=== PATIENT | female | born 1935 | race Native Hawaiian/Other Pacific Islander ===

== ENCOUNTER 2018-01-05 11:07 | Emergency (ER) | payer OTHER ==
--- NOTE | 2018-01-05 11:44 | C.PDOC ---
History Of Present Illness 82 year old female presents to the ER with a complaint of abdominal pain and nausea for the past 10 days, associated with one episode of vomiting. Denies fever, chills, or diarrhea. Time Seen by Provider: 01/05/18 11:31 Chief Complaint (Nursing): Abdominal Pain History Per: Patient History/Exam Limitations: no limitations Onset/Duration Of Symptoms: Days Current Symptoms Are (Timing): Still Present Location Of Pain/Discomfort: RUQ, LUQ Radiation Of Pain To:: None Quality Of Discomfort: Unable To Describe Associated Symptoms: Nausea, Vomiting (x1). denies: Fever, Diarrhea Exacerbating Factors: None Alleviating Factors: None Recent travel outside of the [place]: No Abnormal Vaginal Bleeding: No Past Medical History Reviewed: Historical Data, Nursing Documentation, Vital Signs Vital Signs: Last Vital Signs Temp 97.5 F L 01/05/18 16:54 Pulse 91 H 01/05/18 16:54 Resp 16 01/05/18 16:54 BP 121/81 01/05/18 16:54 Pulse Ox 99 01/05/18 18:38 - Medical History PMH: Arthritis, HTN, Hypercholesterolemia, Hyperlipidemia, Hypothyroidism Denies: Chronic Kidney Disease Surgical History: CABG Family History: States: Unknown Family Hx - Social History Hx Alcohol Use: No Hx Substance Use: No - Immunization History Hx Tetanus Toxoid Vaccination: No Hx Influenza Vaccination: No Hx Pneumococcal Vaccination: No Review Of Systems Constitutional: Negative for: Fever, Chills Cardiovascular: Negative for: Chest Pain, Palpitations Respiratory: Negative for: Cough, Shortness of Breath Gastrointestinal: Positive for: Nausea, Vomiting (x1), Abdominal Pain. Negative for: Diarrhea Genitourinary: Negative for: Dysuria, Hematuria Skin: Negative for: Rash Neurological: Negative for: Weakness, Numbness Physical Exam - Physical Exam Appears: Non-toxic Skin: Normal Color, Warm, Dry Head: Atraumatic, Normacephalic Eye(s): bilateral: Normal Inspection Oral Mucosa: Moist Neck: Normal, Supple Chest: Symmetrical, No Tenderness Cardiovascular: Rhythm Regular Respiratory: Normal Breath Sounds, No Rales, No Rhonchi, No Wheezing Gastrointestinal/Abdominal: Soft, Tenderness (Bilateral upper quadrants), No Guarding, No Rebound Back: No CVA Tenderness Neurological/Psych: Oriented x3, Normal Speech ED Course And Treatment - Laboratory Results Result Diagrams: 01/05/18 12:31 01/05/18 12:31 ECG: Interpreted By Me ECG Rhythm: Sinus Rhythm ECG Interpretation: Normal Rate From EC O2 Sat by Pulse Oximetry: 99 (Room air) Pulse Ox Interpretation: Normal - Radiology CXR: Viewed By Me, Read By Radiologist CXR Interpretation: Yes: Other (Limited study. Cardiomegaly. Mild pulmonary venous congestion.) - CT Scan/US CT abd/pel Other Rad Studies (CT/US): Read By Radiologist, Radiology Report Reviewed CT/US Interpretation: PROCEDURE: CT Abdomen and Pelvis with oral and IV contrast. HISTORY: abd pain. COMPARISON: None available. TECHNIQUE: Contiguous axial images of the abdomen and pelvis. Oral and IV contrast was administered. Coronal and Sagittal reformats generated and reviewed. Contrast dose: 100 cc Visipaque 320. Radiation dose: Total exam DLP = 192.88 mGy-cm. This CT exam was performed using one or more of the following dose reduction techniques: Automated exposure control, adjustment of the mA and/or kV according to patient size, and/or use of iterative reconstruction technique. FINDINGS: Streak artifact from external devices obscure evaluation of the lung bases. Limited study. LOWER THORAX: Moderate pleural effusions. Bibasilar atelectasis. No definite pneumothorax. Median sternotomy wires. Cardiomegaly. LIVER: Unremarkable unenhanced appearance. GALLBLADDER AND BILE DUCTS: Unremarkable unenhanced appearance. PANCREAS: Unremarkable unenhanced appearance. SPLEEN: Unremarkable unenhanced appearance. ADRENALS: Left adrenal gland hypertrophy. The right adrenal gland appears grossly unremarkable. KIDNEYS AND URETERS: The kidneys enhance symmetrically. No hydronephrosis or obstructing renal calculus. BLADDER: Urinary bladder wall thickening. REPRODUCTIVE: The uterus is not identified; correlate clinically for hysterectomy. APPENDIX: The appendix appears within normal limits of caliber. No secondary signs of acute appendicitis. BOWEL: The stomach is nondistended. The bowel loops appear within normal limits of caliber without evidence of intestinal obstruction. PERITONEUM: No significant free fluid. No definite free air. LYMPH NODES: No bulky lymphadenopathy identified. VASCULATURE: No aortic aneurysm. BONES: Degenerative changes. Osseous demineralization. OTHER FINDINGS: None. IMPRESSION: Limited study. Urinary bladder wall thickening; correlate clinically including urinalysis. Left adrenal gland hypertrophy. Colonic wall thickening of the transverse and left colon may be exaggerated by under distension ; correlate clinically to exclude colitis (i.e. Infectious, inflammatory, ischemic.). Moderate pleural effusions. Bibasilar atelectasis. Cardiomegaly. Additional findings as above. Reevaluation Time: 16:36 Reassessment Condition: Improved (ABD SOFT NT ND NO R/G. CT REPORT REVIEWED. TX FOR UTI, DC) Medical Decision Making Medical Decision Making: Plan: * Blood work * CT abd/pel * EKG * CXR * Urinalysis * Aspirin * * Maalox * Pepcid * Protonix * Zofran Disposition Counseled Patient/Family Regarding: Studies Performed, Diagnosis, Need For Followup, Rx Given - Disposition Referrals: YOUR,PMD [Other] Disposition: HOME/ ROUTINE Disposition Time: 16:36 Condition: IMPROVED Prescriptions: Nitrofurantoin Macrocrystals [Macrobid] 1 cap PO BID #14 cap Instructions: Urinary Tract Infection, Adult (DC), Acute Abdomen (Belly Pain), Adult (DC) Forms: [employer] (Albanian) - Clinical Impression Clinical Impression: Abdominal pain, UTI (urinary tract infection) - Scribe Statement The provider has reviewed the documentation as recorded by the Scribe Randall Duarte All medical record entries made by the Scribe were at my direction and personally dictated by me. I have reviewed the chart and agree that the record accurately reflects my personal performance of the history, physical exam, medical decision making, and the department course for this patient. I have also personally directed, reviewed, and agree with the discharge instructions and disposition.
[2018-01-05] MEDS ORDERED: Iohexol 240 (50 ml) PO STA (12:13)
[2018-01-05] MEDS ORDERED: Belladonna-Phenobarbital PO STA (12:13)
[2018-01-05] MEDS ORDERED: Aluminum Hydroxide/Magnesium Hydroxide Susp (30 mL) PO STA (12:13)
[2018-01-05 12:37] LABS: BASO # 0.1 K/uL (0.0-0.2); BASO % 0.8 % (0.0-2.0); EOS # 0.1 K/uL (0.0-0.7); HEMOGLOBIN 12.5 g/dL (11.0-16.0); LYMPH # 0.9 K/uL (1.0-4.3); LYMPH % 13.8 % (20.0-40.0); MEAN CELL VOLUME 99.2 fL (81.0-99.0); MEAN CORPUSCULAR HEMOGLOBIN 33.2 pg (27.0-31.0); MEAN CORPUSCULAR HGB CONC 33.5 g/dL (33.0-37.0); MEAN PLATELET VOLUME 9.7 fL (7.2-11.7); MONO # 0.7 K/uL (0.0-0.8); MONO % 10.8 % (0.0-10.0); NEUT % 73.6 % (50.0-75.0); RBC 3.77 Mil/uL (3.80-5.20); WHITE BLOOD COUNT 6.8 K/uL (4.8-10.8)
[2018-01-05 12:53] LABS: SQUAMOUS EPITHIAL 10 /hpf (0-5); URINE BACTERIA RARE (<OCC); URINE BILIRUBIN NEGATIVE (NEGATIVE); URINE BLOOD NEGATIVE (NEGATIVE); URINE CLARITY Hazy (Clear); URINE COLOR Amber (YELLOW); URINE GLUCOSE (UA) NORMAL (Normal); URINE LEUKOCYTE ESTERASE 2+ Leu/uL (Negative); URINE PROTEIN 2+ mg/dL (NEGATIVE)
[2018-01-05] MEDS ORDERED: Iohexol 240 (50 ml) ONE (12:57)
[2018-01-05] MEDS ORDERED: Aluminum Hydroxide/Magnesium Hydroxide Susp (30 mL) ONE (12:57)
[2018-01-05] MEDS ORDERED: Belladonna-Phenobarbital ONE (12:57)
[2018-01-05 13:06] LABS: ALB/GLOB RATIO 1.4 (1.0-2.1); ALBUMIN 4.2 g/dL (3.5-5.0); ALT/SGPT 23 U/L (9-52); AST/SGOT 25 U/L (14-36); BLOOD UREA NITROGEN 15 mg/dL (7-17); GFR NON-AFRICAN AMERICAN > 60; LIPASE 146 U/L (23-300)
--- NOTE | 2018-01-05 13:35 | RAD ---
Date of service: 01/05/18 Portable chest one view Comparison: Chest x-ray performed 10/17/15 Findings: Numerous external wires, leads, and devices obscure evaluation of the underlying parenchyma. Cardiomegaly. Median sternotomy wires. Atherosclerotic calcifications of the aorta. Mild pulmonary venous congestion. No significant pleural effusion or definite pneumothorax. Osseous demineralization. Degenerative changes. Impression: Limited study. Cardiomegaly. Mild pulmonary venous congestion.
[2018-01-05] MEDS ORDERED: Iodixanol 320 MG/ML 100 ML BOTTLE IV ONE (15:19)
--- NOTE | 2018-01-05 16:25 | CT ---
PROCEDURE: CT Abdomen and Pelvis with oral and IV contrast. HISTORY: abd pain COMPARISON: None available TECHNIQUE: Contiguous axial images of the abdomen and pelvis. Oral and IV contrast was administered. Coronal and Sagittal reformats generated and reviewed. Contrast dose: 100 cc Visipaque 320 Radiation dose: Total exam DLP = 192.88 mGy-cm. This CT exam was performed using one or more of the following dose reduction techniques: Automated exposure control, adjustment of the mA and/or kV according to patient size, and/or use of iterative reconstruction technique. FINDINGS: Streak artifact from external devices obscure evaluation of the lung bases. Limited study. LOWER THORAX: Moderate pleural effusions. Bibasilar atelectasis. No definite pneumothorax. Median sternotomy wires. Cardiomegaly. LIVER: Unremarkable unenhanced appearance. GALLBLADDER AND BILE DUCTS: Unremarkable unenhanced appearance. PANCREAS: Unremarkable unenhanced appearance. SPLEEN: Unremarkable unenhanced appearance. ADRENALS: Left adrenal gland hypertrophy. The right adrenal gland appears grossly unremarkable. KIDNEYS AND URETERS: The kidneys enhance symmetrically. No hydronephrosis or obstructing renal calculus. BLADDER: Urinary bladder wall thickening. REPRODUCTIVE: The uterus is not identified; correlate clinically for hysterectomy. APPENDIX: The appendix appears within normal limits of caliber. No secondary signs of acute appendicitis. BOWEL: The stomach is nondistended. The bowel loops appear within normal limits of caliber without evidence of intestinal obstruction. PERITONEUM: No significant free fluid. No definite free air. LYMPH NODES: No bulky lymphadenopathy identified. VASCULATURE: No aortic aneurysm. BONES: Degenerative changes. Osseous demineralization. OTHER FINDINGS: None. IMPRESSION: Limited study. Urinary bladder wall thickening; correlate clinically including urinalysis. Left adrenal gland hypertrophy. Colonic wall thickening of the transverse and left colon may be exaggerated by under distension ; correlate clinically to exclude colitis (i.e. Infectious, inflammatory, ischemic.) Moderate pleural effusions. Bibasilar atelectasis. Cardiomegaly. Additional findings as above.
[2018-01-05 16:55] VITALS: BP 121/81; PULSE 91; RESP 16; TEMP 97.5
[2018-01-05] MEDS: cefTRIAXone IV 1 gm in Dextros 50 ML IV STA ×2 (17:47→17:48)
[2018-01-05 18:39] VITALS: O2SAT 99
--- NOTE | 2018-01-09 08:29 | CARD ---
APPROVED REPORT Date of service: 01/05/2018 EKG Measurement Heart [id number] LA [id number] <Conclusion> Normal sinus rhythm Left axis deviation Nonspecific ST and T wave abnormality Abnormal ECG
== END 2018-01-05 17:52 | disposition home or self-care (01) ==
LOC: C.ER 11:07
DX: N39.0 Urinary tract infection, site not specified (principal); R10.11 Right upper quadrant pain
CPT/HCPCS: 71045; 74177; 80053; 81001; 83690; 84484; 85025; 87086; 93005; 96365; 96375; 99285; C9113; J0696; J2405; Q9966; Q9967

== ENCOUNTER 2018-01-26 06:54 | Emergency (ER) | payer OTHER ==
[2018-01-26 07:13] VITALS: TEMP 97.6; O2SAT 97; BMI 17.2
[2018-01-26 07:37] LABS: VENOUS BLOOD GAS BASE EXCESS -4.8 mmol/L (0.0-2.0); VENOUS BLOOD GAS PCO2 38 mmHg (40-60); VENOUS BLOOD GAS PO2 17 mm/Hg (30-55); VENOUS BLOOD PH 7.34 (7.32-7.43)
[2018-01-26 07:40] LABS: BASO % 0.7 % (0.0-2.0); EOS % 0.4 % (0.0-4.0); HEMOGLOBIN 13.7 g/dL (11.0-16.0); LYMPH # 0.8 K/uL (1.0-4.3); LYMPH % 13.3 % (20.0-40.0); MEAN CELL VOLUME 99.6 fL (81.0-99.0); MEAN CORPUSCULAR HEMOGLOBIN 33.5 pg (27.0-31.0); MEAN CORPUSCULAR HGB CONC 33.6 g/dL (33.0-37.0); MEAN PLATELET VOLUME 9.7 fL (7.2-11.7); MONO # 0.5 K/uL (0.0-0.8); MONO % 8.3 % (0.0-10.0); NEUT # 4.8 K/uL (1.8-7.0); NEUT % 77.3 % (50.0-75.0); RBC 4.1 Mil/uL (3.80-5.20); RED CELL DISTRIBUTION WIDTH 15.1 % (11.5-14.5); WHITE BLOOD COUNT 6.2 K/uL (4.8-10.8)
--- NOTE | 2018-01-26 07:40 | C.PDOC ---
History Of Present Illness 82-year-old female, presents to the emergency department with complaints of abdominal pain x4 days associated with nausea. Patient had similar symptoms last month, and was diagnosed with UTI. Pt denies any vomiting, fever. <Laurie Bravo - Last Filed: 01/26/18 16:54> History Per: Patient History/Exam Limitations: no limitations Onset/Duration Of Symptoms: Days Current Symptoms Are (Timing): Still Present Severity: Moderate <Laurie Bravo - Last Filed: 01/26/18 16:54> <Nazia Flannery - Last Filed: 01/29/18 06:33> Time Seen by Provider: 01/26/18 07:13 Chief Complaint (Nursing): Abdominal Pain Past Medical History Reviewed: Historical Data, Nursing Documentation, Vital Signs Vital Signs: Last Vital Signs Temp 97.6 F 01/26/18 07:09 Pulse 89 01/26/18 07:09 Resp 20 01/26/18 07:09 BP 128/81 01/26/18 07:09 Pulse Ox 97 01/26/18 07:09 - Medical History PMH: Arthritis, HTN, Hypercholesterolemia, Hyperlipidemia, Hypothyroidism Denies: Chronic Kidney Disease Surgical History: CABG Family History: States: No Known Family Hx - Social History Hx Alcohol Use: No Hx Substance Use: No - Immunization History Hx Tetanus Toxoid Vaccination: No Hx Influenza Vaccination: No Hx Pneumococcal Vaccination: No <Laurie Bravo - Last Filed: 01/26/18 16:54> Vital Signs: Last Vital Signs Temp 97.6 F 01/26/18 07:09 Pulse 73 01/26/18 12:10 Resp 18 01/26/18 12:10 BP 111/71 01/26/18 12:10 Pulse Ox 97 01/26/18 16:54 <Nazia Flannery A - Last Filed: 01/29/18 06:33> Review Of Systems Constitutional: Negative for: Fever, Chills Cardiovascular: Negative for: Chest Pain Gastrointestinal: Positive for: Nausea, Abdominal Pain. Negative for: Vomiting Genitourinary: Negative for: Dysuria, Frequency, Hematuria Musculoskeletal: Negative for: Back Pain <Laurie Bravo - Last Filed: 01/26/18 16:54> Physical Exam - Physical Exam Appears: Non-toxic, No Acute Distress Skin: Warm, Dry, No Rash Head: Atraumatic, Normacephalic Eye(s): bilateral: Normal Inspection, PERRL, EOMI Nose: Normal Oral Mucosa: Moist Lips: Normal Appearing Neck: Normal ROM Cardiovascular: Rhythm Regular, No Murmur Respiratory: Normal Breath Sounds, No Accessory Muscle Use Gastrointestinal/Abdominal: Soft, No Tenderness Back: Normal Inspection Extremity: Normal ROM, No Deformity Neurological/Psych: Oriented x3, Normal Speech <Laurie Bravo - Last Filed: 01/26/18 16:54> ED Course And Treatment - Laboratory Results Result Diagrams: 01/26/18 07:33 01/26/18 07:33 Lab Interpretation: No Acute Changes ECG: Interpreted By Me ECG Rhythm: Sinus Rhythm, Nonspecific Changes ECG Interpretation: No Acute Changes Rate From EC O2 Sat by Pulse Oximetry: 97 Pulse Ox Interpretation: Normal - CT Scan/US No standard instances Other Rad Studies (CT/US): Read By Radiologist CT/US Interpretation: FINDINGS: LOWER THORAX: Small bilateral pleural effusion, essentially unchanged from prior examination. Marked cardiomegaly. Sternotomy wires. LIVER: Unremarkable. No gross lesion or ductal dilatation. GALLBLADDER AND BILE DUCTS: Unremarkable. PANCREAS: Unremarkable. No gross lesion or ductal dilatation. SPLEEN: Unremarkable. ADRENALS: Unremarkable. No mass. KIDNEYS AND URETERS: Unremarkable. No hydronephrosis. No solid mass. VASCULATURE: Unremarkable. No aortic aneurysm. BOWEL: Unremarkable. No obstruction. No gross mural thickening. APPENDIX: Normal appendix in atypical location lateral to the inferior right lobe of the liver. PERITONEUM: Unremarkable. No free fluid. No free air. LYMPH NODES: Unremarkable. No enlarged lymph nodes. BLADDER: Poorly distended. Thickened wall may be secondary to inadequate distention. Rule out cystitis. Correlate with urinalysis. REPRODUCTIVE: Status post hysterectomy. BONES: No acute fracture. OTHER FINDINGS: None. IMPRESSION: Bilateral small pleural effusion. Marked cardiomegaly. No acute intra-abdominal process identified. Progress Note: Treated with IVF NSS x 2 liters. On re-evaluation abdomen soft non-tender. Repeat LA 1.4. Treated with macrobid PO Reassessment Condition: Improved <Laurie Bravo - Last Filed: 01/26/18 16:54> - Laboratory Results Result Diagrams: 01/26/18 07:33 01/26/18 07:33 <Nazia Flannery - Last Filed: 01/29/18 06:33> Disposition Counseled Patient/Family Regarding: Studies Performed, Diagnosis, Need For Followup - Disposition Disposition Time: 12:00 - POA Present On Arrival: None <Laurie Bravo - Last Filed: 01/26/18 16:54> <Nazia Flannery - Last Filed: 01/29/18 06:33> - Disposition Referrals: [facility] [Outside] [facility] [Outside] Disposition: HOME/ ROUTINE Condition: STABLE Additional Instructions: return to ED if any increase symptoms Follow up with your PMD or clinic for further evaluation Prescriptions: Nitrofurantoin Macrocrystals [Macrobid] 1 cap PO BID #14 cap Instructions: Urinary Tract Infections in Adults, Acute Abdomen (Belly Pain) Forms: [employer] (Korean) Print Language: FAROESE - Clinical Impression Clinical Impression: UTI (urinary tract infection), Abdominal pain - Scribe Statement The provider has reviewed the documentation as recorded by the Scribe (Ivan Acosta) All medical record entries made by the Scribe were at my direction and personally dictated by me. I have reviewed the chart and agree that the record accurately reflects my personal performance of the history, physical exam, medical decision making, and the department course for this patient. I have also personally directed, reviewed, and agree with the discharge instructions and disposition. <Laurie Bravo - Last Filed: 01/26/18 16:54> - PA / [employer]ER / Resident Statement / has reviewed & agrees with the documentation as recorded. <Nazia Flannery - Last Filed: 01/29/18 06:33>
[2018-01-26] MEDS ORDERED: Sodium Chloride 0.9% 1,000 ML ONE ×2 (07:43→11:38)
[2018-01-26] MEDS: Sodium Chloride 0.9% 1,000 ML IV ONE ×2 (07:45→11:30)
[2018-01-26 08:15] LABS: ALB/GLOB RATIO 1.3 (1.0-2.1); ALBUMIN 3.9 g/dL (3.5-5.0); ALT/SGPT 39 U/L (9-52); AST/SGOT 41 U/L (14-36); BLOOD UREA NITROGEN 26 mg/dL (7-17); CALCIUM 9.8 mg/dl (8.6-10.4); GFR NON-AFRICAN AMERICAN 60; LIPASE 152 U/L (23-300)
[2018-01-26 08:16] LABS: SQUAMOUS EPITHIAL 2 /hpf (0-5); URINE BACTERIA RARE (<OCC); URINE BILIRUBIN NEGATIVE (NEGATIVE); URINE BLOOD NEGATIVE (NEGATIVE); URINE CLARITY Hazy (Clear); URINE COLOR Amber (YELLOW); URINE GLUCOSE (UA) NORMAL (Normal); URINE LEUKOCYTE ESTERASE TRACE Leu/uL (Negative); URINE PROTEIN 2+ mg/dL (NEGATIVE); URINE UROBILINOGEN NORMAL mg/dL (0.2-1.0)
[2018-01-26 08:56] VITALS: RESP 18
--- NOTE | 2018-01-26 09:27 | CT ---
Date of service: 01/26/2018 PROCEDURE: CT Abdomen and Pelvis without intravenous contrast HISTORY: Pain COMPARISON: 01/05/2018 TECHNIQUE: Without contrast.. Contrast dose: 0 Radiation dose: Total exam DLP = 185.71 mGy-cm. This CT exam was performed using one or more of the following dose reduction techniques: Automated exposure control, adjustment of the mA and/or kV according to patient size, and/or use of iterative reconstruction technique. FINDINGS: LOWER THORAX: Small bilateral pleural effusion, essentially unchanged from prior examination. Marked cardiomegaly. Sternotomy wires. LIVER: Unremarkable. No gross lesion or ductal dilatation. GALLBLADDER AND BILE DUCTS: Unremarkable. PANCREAS: Unremarkable. No gross lesion or ductal dilatation. SPLEEN: Unremarkable. ADRENALS: Unremarkable. No mass. KIDNEYS AND URETERS: Unremarkable. No hydronephrosis. No solid mass. VASCULATURE: Unremarkable. No aortic aneurysm. BOWEL: Unremarkable. No obstruction. No gross mural thickening. APPENDIX: Normal appendix in atypical location lateral to the inferior right lobe of the liver. PERITONEUM: Unremarkable. No free fluid. No free air. LYMPH NODES: Unremarkable. No enlarged lymph nodes. BLADDER: Poorly distended. Thickened wall may be secondary to inadequate distention. Rule out cystitis. Correlate with urinalysis. REPRODUCTIVE: Status post hysterectomy BONES: No acute fracture. OTHER FINDINGS: None. IMPRESSION: Bilateral small pleural effusion. Marked cardiomegaly. No acute intra-abdominal process identified.
[2018-01-26 12:11] VITALS: BP 111/71; PULSE 73
--- NOTE | 2018-01-27 23:11 | CARD ---
APPROVED REPORT Date of service: 01/26/2018 EKG Measurement Heart [id number] MD 144P42 [id number] <Conclusion> Normal sinus rhythm Low voltage QRS Septal infarct, age undetermined Abnormal ECG
== END 2018-01-26 12:11 | disposition home or self-care (01) ==
LOC: C.ER 06:54
DX: N39.0 Urinary tract infection, site not specified (principal); R10.9 Unspecified abdominal pain
CPT/HCPCS: 74176; 80053; 81001; 82803; 83605; 83690; 84484; 85025; 93005; 96361; 96374; 99285; J2405; J7030